=== PATIENT | female | born 1950 | race Caucasian/White ===

== ENCOUNTER → 2017-12-23 | Outpatient (REF) | payer MEDICARE | LOC: M LAB REF 17:49 | DX: L57.0 Actinic keratosis (principal) | CPT/HCPCS: 88305 ==

== ENCOUNTER 2023-11-10 11:02 | Emergency (ER) | payer MEDICARE ==
[~2023-11-10] VITALS: Ht 172.7 cm; Wt 79.1 kg
[2023-11-10] MEDS ORDERED: FLUO1CRE2 (11:35)
[2023-11-10] MEDS ORDERED: TETRACAINE 0.5% OPHTH SOLN 4ML OS ONE (14:25)
[2023-11-10 15:21] VITALS: BP 186/92; TEMP 97; O2SAT 99
== END 2023-11-10 15:31 | disposition home or self-care (01) ==
LOC: M ED 11:02
DX: H53.452 Other localized visual field defect, left eye (principal)

== ENCOUNTER → 2023-12-09 | Outpatient (REF) | payer MEDICARE ==
[~2023-12-09] MED LIST: FLUO1CRE2
[2023-12-09 17:19] LABS: HEMATOCRIT 41.4 % (36.0-47.0)
[2023-12-09 17:50] LABS: FERRITIN 56.2 NG/ML (7.3-270.7)
[2023-12-10 12:27] LABS: FREE T3 3.2 PG/ML (2.3-4.2)
== END ==
LOC: M LAB REF 16:22
PROVIDERS: ATTEND Nurse Practitioner Adult Health
DX: L65.9 Nonscarring hair loss, unspecified (principal); E03.9 Hypothyroidism, unspecified

== ENCOUNTER → 2024-01-15 | Outpatient (CLI) | payer MEDICARE | LOC: M WHC 07:52 | PROVIDERS: ATTEND Nurse Practitioner Adult Health | DX: Z12.31 Encounter for screening mammogram for malignant neoplasm of breast (principal) ==

== ENCOUNTER → 2025-06-16 | Outpatient (CLI) | payer MEDICARE | LOC: M WHC 12:57 | PROVIDERS: ATTEND Nurse Practitioner Adult Health | DX: Z12.31 Encounter for screening mammogram for malignant neoplasm of breast (principal); R92.313 Mammographic fatty tissue density, bilateral breasts ==